=== PATIENT | male | born 1960 | race Caucasian/White ===

== ENCOUNTER 2017-03-12 05:11 | Observation (INO) | payer OTHER ==
[~2017-03-12] VITALS: Ht 162.6 cm; Wt 98.0 kg
[~2017-03-12 05:11] MED LIST: ASPI325T PO; ATOR40TA16 PO; FINA5TAB2 PO; GABA100C4 PO; METO50TA PO; NAPR500T PO; OMEP40CA2 PO; PERC5TAB12 PO; SYMB160A INH; VENTAER INH
[2017-03-12 05:16] VITALS: BP 167/92; PULSE 76; RESP 16; TEMP 98.8; O2SAT 100; O2SAT 76
[2017-03-12] MEDS ORDERED: SODIUM CHLORIDE 0.9% FLUSH 10 ML FLUSH IVF PRN (05:30)
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
--- NOTE | 2017-03-12 05:44 | RADRPT ---
EXAM DATE/TIME: 03/12/2017 05:40 [facility] COMPARISON: CHEST SINGLE AP, June 05, 2016, 22:28. INDICATIONS : Chest pain. MEDICAL HISTORY : None. SURGICAL HISTORY : None. ENCOUNTER: Initial ACUITY: 1 day PAIN SCORE: 0/10 LOCATION: Bilateral chest FINDINGS: A single view of the chest demonstrates the lungs to be symmetrically aerated without evidence of mas s, infiltrate or effusion. Cardiomegaly. The cardiomediastinal contours are unremarkable. Osseous s tructures are intact. CONCLUSION: 1. Stable chest. 2. Cardiomegaly. Darrly Call MD on March 12, 2017 at 5:43 Board Certified Radiologist. This report was verified electronically.
[2017-03-12 06:10] LABS: AUTOMATED NEUTROPHIL # 4.7 TH/MM3 (1.8-7.7); BASOPHIL # 0.1 TH/MM3 (0-0.2); BASOPHIL % 0.9 % (0.0-2.0); EOSINOPHIL # 0.2 TH/MM3 (0-0.4); EOSINOPHIL % 2.2 % (0.0-4.0); HEMATOCRIT 38.2 % (39.0-51.0); HEMO FLAGS DIFF FINAL; LYMPH % 20.9 % (9.0-44.0); LYMPHOCYTE # 1.5 TH/MM3 (1.0-4.8); MEAN CORPUSCULAR HEMOGLOBIN 26.6 PG (27.0-34.0); MEAN CORPUSCULAR HGB CONC 33.2 % (32.0-36.0); MONO % 8.2 % (0.0-8.0); NEUT % 67.8 % (16.0-70.0); PLATELET COUNT 199 TH/MM3 (150-450); RED BLOOD COUNT 4.77 MIL/MM3 (4.50-5.90); RED CELL DISTRIBUTION WIDTH 14.7 % (11.6-17.2)
[2017-03-12 06:15] VITALS: BP 109/65; PULSE 68; RESP 16; O2SAT 96
[2017-03-12 06:16] LABS: APTT (PATIENT) 24.1 SEC (24.3-30.1); INTERNATIONAL NORMALIZED RATIO 0.9 RATIO; PROTHROMBIN TIME - PATIENT 10.3 SEC (9.8-11.6)
[2017-03-12 06:28] LABS: ANION GAP 7 MEQ/L (5-15); BICARBONATE 24.5 MEQ/L (21.0-32.0); BLOOD UREA NITROGEN 12 MG/DL (7-18); CHLORIDE 110 MEQ/L (98-107); GLOMERULAR FILTRATION RATE 60 ML/MIN (>89); POTASSIUM 3.8 MEQ/L (3.5-5.1); SODIUM (NA) 141 MEQ/L (136-145)
[2017-03-12 06:33] LABS: CREATINE KINASE 87 U/L (39-308)
[2017-03-12] MEDS ORDERED: ASPI81CH CHEW (06:35)
[2017-03-12] MEDS ORDERED: NITR1SUB3 SL (06:35)
[2017-03-12 07:15] VITALS: BP 108/64; PULSE 64; RESP 18; O2SAT 97
[2017-03-12] MEDS ORDERED: NITROGLYCERIN 0.4 MG SL 25 TABS/BTL SL PRN (08:30)
[2017-03-12] MEDS ORDERED: ACETAMINOPHEN 500 MG CPLT PO PRN (08:30)
[2017-03-12] MEDS ORDERED: ONDANSETRON HCL 4 MG/2 ML VIAL IV PRN (08:30)
[2017-03-12] MEDS ORDERED: SODIUM CHLORIDE 0.9% FLUSH 10 ML FLUSH IV FLUSH SCH (09:00)
[2017-03-12] MEDS ORDERED: ASPIRIN 325 MG TAB PO SCH (09:00)
--- NOTE | 2017-03-12 09:12 | HHI.HP ---
[facility] Primary Care Physician Dante Monroe DO Chief Complaint Chest pain History of Present Illness 56-year-old male with history of COPD, hypertension, and chronic pain presents to the emergency room for further evaluation of chest pain. Onset 3 AM stating pain woke him from his sleep. Location substernal described as tightness. Duration lasted approximately 2 hours. Hurt to take a deep breath, therefore his breathing was shallow otherwise he did not have shortness of breath. Denied any nausea, vomiting, or diaphoresis. No radiation of pain. No known precipitating or relieving factors. Endorses he recently seen Dr. Sharma less than 4 months ago and at that time he completed a CT coronary angiogram. Denies similar pain in the past, although states he has chronic intermittent, substernal, sharp pain that radiates to his back lasting 30-60 seconds almost daily. No recent illness, recent travel, cough, or sputum production. Review of Systems General: No fatigue,weakness, fever, chills, recent illness, or change in appetite. Has been in his general state of health. He is generally active in fact yesterday he walked around to [employer] and did not have any chest discomfort. States he may have become overheated yesterday and somewhat dehydrated. HEENT: Intermittent PATTERSON, follows with neurology in [place]. 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 No nasal congestion or drainage, no dysphasia CV: As stated above. No current chest pain or pressure. No palpitations, intermittent leg pain, dizziness RESP: No SOB, wheeze, hemoptysis. History of COPD and a "touch of asthma." Chronic cough unchanged. GI: No nausea, vomiting, bowel changes, diarrhea, constipation, pain, distention , melena, blood in the stool. No unintentional weight gain or weight loss : No dysuria, urgency, frequency. History of kidney stones EXT: No lower leg edema, no paraesthesias MS: Chronic back pain. States he has Percocet ordered but he does not take if he does not want to become addicted to pain medications. States he deals with chronic pain daily. No change in ROM NEURO: No difficulty with balance, LOC, motor/sensory deficits. Follows with neurologist in [place]. PSYCH: No anxiety, depression Past Family Social History Allergies: Coded Allergies: Erythromycin (Verified Allergy, Severe, Anaphylaxis, 03/12/17) Past Medical History COPD, hypertension, hyperlipidemia, GERD, arthritis, kidney stones, fatty liver , BPH, chronic ear infections, congenital ear abnormalities Past Surgical History Hernia repair, left shoulder surgery, ear surgery, cataract surgery, lithotripsy Reported Medications Reported Meds & Active Scripts Active Percocet (Oxycodone-Acetaminophen) 5-325 mg Tab 1 Tab PO Q4H PRN Reported Nitroglycerin SL (Nitroglycerin) 0.4 Mg Subl 0.4 Mg SL DIRECTED PRN ONE TABLET UNDER THE TONGUE NEEDED FOR CHEST PAIN, MAY REPEAT EVERY FIVE MINUTES FOR A TOTAL OF 3 DOSES OR CALL 911 IF NO RELIEF Aspirin 81 Mg Chew 81 Mg CHEW DAILY Ventolin Hfa 18 GM Inh (Albuterol Sulfate) 90 Mcg/Act Aer 2 Puff INH Q6H PRN Symbicort Inh (Budesonide/Formoterol Fumarate) 160-4.5 Mcg/Act Aero 2 Puff INH BID PRN Gabapentin 100 Mg Cap 100 Mg PO TID Atorvastatin (Atorvastatin Calcium) 40 Mg Tab 40 Mg PO HS Omeprazole 40 Mg Cap 40 Mg PO DAILY Naproxen 500 Mg Tab 500 Mg PO BID Metoprolol Tartrate 50 Mg Tab 25 Mg PO BID Active Ordered Medications Current Medications Medications (Trade) Dose Ordered Sig/Ingrid Route Start Time Stop Time Status Last Admin (Tylenol) 500 mg Q4H PRN PO 03/12/17 08:30 (Zofran Inj) 4 mg Q6H PRN IV 03/12/17 08:30 (Nitrostat Sl) 0.4 mg Q5M PRN SL 03/12/17 08:30 (Aspirin) 325 mg DAILY PO 03/12/17 09:00 Family History Noncontributory for early onset cardiovascular disease Social History Known hypertension and hyperlipidemia. No known diabetes. Lifelong nonsmoker. Denies any alcohol or illegal drug use. Endorses active lifestyle. Past cardiac testing Reports CT coronary angiogram less than 4 months ago unremarkable. Follows with Dr. Karina Sharma seen her 2 months ago. 05/22/16 EP study (Dr. Gallardo)-successful EP study, mapping, and ablation of AV nodule reentry tachycardia 05/03/16 Lexiscan unremarkable, EF 64% 8/30/14 Lexiscan unremarkable, EF 70% 01/22/12 Lexiscan unremarkable, EF 64% 08/23/10 Cardiac catheterizationPatent coronary arteries. Preserved LV function Physical Exam Vital Signs Vital Signs Date Time Temp Pulse Resp B/P Pulse Ox O2 Delivery O2 Flow Rate FiO2 03/12/17 07:15 64 18 108/64 97 Room Air 03/12/17 06:15 Room Air 03/12/17 06:15 Room Air 03/12/17 06:15 68 16 109/65 96 Room Air 03/12/17 06:15 16 96 Room Air 03/12/17 05:16 98.8 76 16 167/92 100 Room Air Physical Exam GENERAL: Alert WN, WD, NAD, pleasant, obese, male HEAD: NC, AT EYES: Sclera clear, conjunctiva without injection, pupils equal and round ENT: Mucous membranes pink and moist CV: RRR, without murmur, rub, gallop, no JVD, S1-S2 no S3-S4. RESP: Clear lungs throughout bilateral, no crackles, wheeze, rhonchi, symmetrical chest rise, nonlabored, able to speak in full sentences ABD: Soft, NT, ND, no masses, positive bowel tones EXT: Pulses +24, no dependent edema MS: Normal tone 4 extremities, nontender, no obvious deformities, full range of motion NEURO: CN II through CN XII grossly intact, motor strength 5/5, gait WNL PSYCH: A+O 3, pleasant affect, appropriate speech, appropriate mood and affect , insight and judgment SKIN: Normal turgor, normal texture Laboratory Laboratory Tests Test 03/12/17 05:55 White Blood Count 7.0 Red Blood Count 4.77 Hemoglobin 12.7 Hematocrit 38.2 Mean Corpuscular Volume 80.0 Mean Corpuscular Hemoglobin 26.6 Mean Corpuscular Hemoglobin 33.2 Concent Red Cell Distribution Width 14.7 Platelet Count 199 Mean Platelet Volume 8.3 Neutrophils (%) (Auto) 67.8 Lymphocytes (%) (Auto) 20.9 Monocytes (%) (Auto) 8.2 Eosinophils (%) (Auto) 2.2 Basophils (%) (Auto) 0.9 Neutrophils # (Auto) 4.7 Lymphocytes # (Auto) 1.5 Monocytes # (Auto) 0.6 Eosinophils # (Auto) 0.2 Basophils # (Auto) 0.1 CBC Comment DIFF FINAL Differential Comment Prothrombin Time 10.3 Prothromb Time International 0.9 Ratio Activated Partial 24.1 Thromboplast Time D-Dimer Quantitative (PE/DVT) 0.46 Sodium Level 141 Potassium Level 3.8 Chloride Level 110 Carbon Dioxide Level 24.5 Anion Gap 7 Blood Urea Nitrogen 12 Creatinine 1.25 Estimat Glomerular Filtration 60 Rate Random Glucose 103 Calcium Level 9.2 Magnesium Level 2.0 Total Creatine Kinase 87 Troponin I LESS THAN 0.02 Result Diagram: 03/12/1755403/12/17554 Imaging Last Impressions Chest X-Ray 03/12/17518 Signed Impressions: Service Date/Time: Sunday, March 12, 2017 05:40 - CONCLUSION: 1. Stable chest. 2. Cardiomegaly. Darryl Call MD Course EKGs Normal sinus rhythm, normal axis, no ST or T-segment changes Assessment and Plan Assessment and Plan #1Chest painadmitted to chest pain center. Seen and evaluated by Dr. Carlos Espinosa. Will rule out with 2 sets of EKGs, cardiac enzymes, and a d-dimer. Plans to discharge later this morning further testing is unremarkable. Patient had recent CT coronary angiogram recently, normal Lexiscan no last year, and a normal cardiac catheterization in 2009. Reassurance provided. Follow up with Dr. Sharma as previously discussed with her. Instructed to return in the emergency room for any further chest discomfort or concern #2 COPDno changes to medications, follow-up with Dr. Thompson as previously discussed with him. #3 Hypertensioncontinue metoprolol #4 GERDcontinue omeprazole #5 Hyperlipidemiacontinue atorvastatin #6 Musculoskeletal painnaproxen 500 mg twice a day 5 days instructed to take with food. If pain persists may then use [id number] strength for 5 days. This is been discussed with him and he is agreeable to plan of care. Stephanie Santos Mar 12, 2017 09:12
[2017-03-12] MEDS ORDERED: NAPR500T PO (10:52)
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
--- NOTE | 2017-03-12 14:38 | EKG ---
Date Performed: 03/12/2017 Time Performed: 05:49:28 PTAGE: 56 years EKG: Sinus rhythm Since previous tracing, no significant change noted NORMAL ECG PREVIOUS TRACING : 06/06/2016 04.35 DOCTOR: Zan Dennis Interpretating Date/Time 03/12/2017 14:38:05
[2017-03-12] MEDS ORDERED: METOPROLOL TARTRATE 25 MG TAB PO SCH (21:00)
[2017-03-13] MEDS ORDERED: PANTOPRAZOLE SOD 40 MG DELAYED RELEASE TAB PO SCH (09:00)
--- NOTE | 2017-03-14 07:29 | EKG ---
Date Performed: 03/12/2017 Time Performed: 21:33:00 PTAGE: 56 years EKG: ..PEDIATRIC ECG INTERPRETATION SINUS BRADYCARDIA BORDERLINE ECG NO PREVIOUS TRACING DOCTOR: Carlos Espinosa Interpretating Date/Time 03/14/2017 07:27:19
== END 2017-03-12 11:51 | disposition home or self-care (01) ==
LOC: NEPE 05:11 → NEDA 06:40 → NEPGCP 09:51
PROVIDERS: ADMIT Internal Medicine Interventional Cardiology; ATTEND Internal Medicine Interventional Cardiology
DX: R07.89 Other chest pain (principal); M79.1 Myalgia; R51 Headache; R06.02 Shortness of breath; R00.1 Bradycardia, unspecified; G89.29 Other chronic pain; I25.10 Atherosclerotic heart disease of native coronary artery without angina pectoris; I11.0 Hypertensive heart disease with heart failure; I50.9 Heart failure, unspecified; I51.7 Cardiomegaly; J44.9 Chronic obstructive pulmonary disease, unspecified; K21.9 Gastro-esophageal reflux disease without esophagitis; E78.5 Hyperlipidemia, unspecified; E78.00 Pure hypercholesterolemia, unspecified; M19.90 Unspecified osteoarthritis, unspecified site; H91.90 Unspecified hearing loss, unspecified ear; Z79.899 Other long term (current) drug therapy; Z79.82 Long term (current) use of aspirin; Z79.84 Long term (current) use of oral hypoglycemic drugs
CPT/HCPCS: 71010; 80048; 82550; 83735; 84484; 85025; 85379; 85610; 85730; 93005; 99285; G0378

== ENCOUNTER 2017-05-17 21:28 | Emergency (ER) | payer OTHER, MEDICAID ==
[~2017-05-17] VITALS: Ht 162.6 cm; Wt 97.0 kg
[~2017-05-17 21:28] MED LIST changes: -ASPI325T PO; +ASPI81CH CHEW; -FINA5TAB2 PO; +NITR1SUB3 SL
[2017-05-17 21:30] VITALS: BP 134/86; PULSE 89; RESP 18; TEMP 97.7; O2SAT 97
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
[2017-05-18 00:11] VITALS: BP 137/88
[2017-06-05] MEDS ORDERED: GABA600T PO (09:39)
== END 2017-05-18 00:57 | disposition home or self-care (01) ==
LOC: NEPD 21:28
DX: M79.641 Pain in right hand (principal)
CPT/HCPCS: 73130; 99283

== ENCOUNTER → 2017-08-07 | Outpatient (CLI) | payer OTHER ==
[~2017-08-07] MED LIST changes: +ASPI-516 CHEW; -ASPI81CH CHEW; -GABA100C4 PO; +GABA600T PO; -NAPR500T PO; +NAPR500T2 PO; -PERC5TAB12 PO
--- NOTE | 2017-08-09 08:47 | RSPPFT ---
DATE OF PROCEDURE: 08/07/17 COMMENTS: VOLUMES DYNAMIC: FVC and FEV1 moderately reduced. STATIC: TLC, FRC moderately reduced; RV normal. FLOWS: FEV1% normal; FEF 25-75 mildly reduced. DIFFUSION: Moderately reduced. FLOW VOLUME LOOP: Restrictive configuration. IMPRESSION: Moderately severe restrictive ventilatory defect with terminal airflow obstruction of mild severity and a moderate reduction in diffusion. There is some improvement post-bronchodilator but airways resistance is normal.
== END ==
LOC: HRSP 11:53
PROVIDERS: ATTEND Internal Medicine
DX: J44.9 Chronic obstructive pulmonary disease, unspecified (principal)
CPT/HCPCS: 94060; 94620; 94726; 94729; 95012

== ENCOUNTER 2018-02-23 05:28 | Emergency (ER) | payer OTHER ==
[2018-02-23 05:32] VITALS: BP 129/73; PULSE 72; RESP 16; TEMP 98.9; O2SAT 99
[2018-02-23] MEDS ORDERED: METOCLOPRAMIDE HCL 10 MG/2 ML VIAL IVP ONE (07:00)
[2018-02-23] MEDS ORDERED: KETOROLAC TROMETHAMINE 30 MG/ML (IVP) VIAL IVP ONE (07:00)
[2018-02-23] MEDS ORDERED: SODIUM CHLORIDE 0.9% FLUSH 10 ML FLUSH IVF PRN (07:00)
[2018-02-23] MEDS ORDERED: diphenhydrAMINE HCL 50 MG/ML VIAL IVP ONE (07:00)
[2018-02-23] MEDS ORDERED: SODIUM CHLOR 0.9% 1000 ML INJ 1,000 ML IV ONE (07:00)
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
[2018-02-23 07:31] VITALS: BP 130/75; PULSE 74; RESP 17; O2SAT 99
[2018-02-23] MEDS ORDERED: BUTA1CAP PO (08:28)
[2018-02-23 08:42] VITALS: BP 125/77
== END 2018-02-23 08:40 | disposition home or self-care (01) ==
LOC: NEPC 05:28
DX: R51 Headache (principal); M19.90 Unspecified osteoarthritis, unspecified site; E78.00 Pure hypercholesterolemia, unspecified; I11.0 Hypertensive heart disease with heart failure; I50.9 Heart failure, unspecified; J44.9 Chronic obstructive pulmonary disease, unspecified; K21.9 Gastro-esophageal reflux disease without esophagitis; Z87.442 Personal history of urinary calculi; Z79.899 Other long term (current) drug therapy; Z88.1 Allergy status to other antibiotic agents
CPT/HCPCS: 96361; 96374; 96375; 99284; J1200; J1885; J2765; J7030